=== PATIENT | male | born 1965 | race African-American/Black ===

== ENCOUNTER 2022-05-23 20:38 | Emergency (ER) | payer BC ==
[~2022-05-23] VITALS: Ht 172.7 cm; Wt 90.0 kg
[2022-05-23] MEDS ORDERED: MORPHINE SULFATE 10 MG/ML CPJ IM ONE (22:30)
[2022-05-23] MEDS ORDERED: ONDANSETRON 4MG ODT PO ONE (22:30)
[2022-05-23] MEDS ORDERED: PROPOFOL 200MG/20ML VIAL IV ONE (23:45)
[2022-05-24] MEDS ORDERED: HYDR-4001 MT (01:30)
[2022-05-24] MEDS ORDERED: IBUP-2029 MT (01:30)
[2022-05-24 03:00] VITALS: BP 140/75
== END 2022-05-24 03:05 | disposition home or self-care (01) ==
LOC: ER 20:38
DX: S43.015A Anterior dislocation of left humerus, initial encounter (principal); I10 Essential (primary) hypertension; V28.09XA Other motorcycle driver injured in noncollision transport accident in nontraffic accident, initial encounter; Y93.89 Activity, other specified; Y92.488 Other paved roadways as the place of occurrence of the external cause
CPT/HCPCS: 23650; 73030; 96372; 99152; 99285; J2270; J2704; Q0162